=== PATIENT | male | born 1980 | race Caucasian/White ===

== ENCOUNTER 2021-04-15 01:50 | Emergency (ER) | payer SELFPAY ==
[~2021-04-15] VITALS: Ht 170.2 cm; Wt 83.9 kg
[2021-04-15 02:30] VITALS: BP_SYST 135
--- NOTE | 2021-04-15 02:30 | NUR ---
Patient to ER bed h1 to gown for evaluation. Side rails up. Report given to self. patient arrived to ER via EMS ambulance w/ c/o etoh intoxication for which patient was found lying on grass lawn asleep. MIKEY Abdalla Deputies on scene and had contacted patient friend to come pick patient up at [facility]. Unknown if "friend" is on his way. Introduced self to patient, positioned for comfort, continue to monitor
--- NOTE | 2021-04-15 03:15 | NUR ---
Patient left without being seen.
--- NOTE | 2021-04-15 03:15 | NUR ---
Patient cousin (Abbe) arrived to pick patient up and to take him home. Patient amblated out of the emergency room, steady gait. patient eloped ER in the accompany of his cousin.
== END 2021-04-15 03:15 | disposition left against medical advice (07) ==
LOC: SED 01:50
DX: F10.129 Alcohol abuse with intoxication, unspecified (principal); Y90.9 Presence of alcohol in blood, level not specified; Z53.21 Procedure and treatment not carried out due to patient leaving prior to being seen by health care provider